=== PATIENT | male | born 1960 | race Caucasian/White ===

== ENCOUNTER 2021-04-29 15:56 | Inpatient (IN) | payer OTHER ==
[~2021-04-29] VITALS: Ht 188 cm; Wt 73.8 kg
[2021-04-29] MEDS ORDERED: SODIUM CHLORIDE 0.9% 1,000 ML IV ONE (21:45)
[2021-04-29] MEDS ORDERED: ONDANSETRON ODT 4 MG TAB PO ONE (21:45)
[2021-04-29 23:13] LABS: Basophils # (auto) 0.1 10 ^3/uL (0-0.2); Basophils % (auto) 0.7 % (0.0-2.0); Eosinophils # (auto) 0 10 ^3/uL (0-0.8); Eosinophils % (auto) 0.1 % (0.0-7.0); Hematocrit 35.1 % (41.0-53.0); Hemoglobin 11.8 g/dL (13.5-17.5); Lymphocytes # (auto) 2.1 10 ^3/uL (0.4-5.4); Lymphocytes % (auto) 21.5 % (10.0-50.0); Mean Corpuscular Hgb Conc. 33.6 g/dL (32.0-36.0); Mean Corpuscular Volume 86.2 fL (80.0-100.0); Monocytes # (auto) 0.9 10 ^3/uL (0-1.3); Monocytes % (auto) 9.1 % (0.0-12.0); Neutrophils # (auto) 6.7 10 ^3/uL (1.6-8.6); Neutrophils % (auto) 68.6 % (37.0-80.0); Nucleated Red Blood Cells % 0.1 %; Red Blood Cells 4.07 10^6/uL (4.5-5.90); Red Cell Distribution Width 17.5 % (11.8-14.3); White Blood Cell 9.8 10^3/uL (4.4-10.8)
[2021-04-29 23:33] LABS: Albumin 2.3 g/dL (3.4-5.0); Magnesium 1.3 mg/dL (1.6-2.6); Potassium 4.8 mmol/L (3.5-5.1)
[2021-04-29 23:37] LABS: BUN/Creatinine Ratio 17.6; Bilirubin, Total 1.9 mg/dL (0.2-1.0); Total Protein 8.6 g/dL (6.4-8.2)
[2021-04-30] MEDS ORDERED: ONDANSETRON HCL 4 MG/2 ML VIAL IV PRN (01:00)
[2021-04-30] MEDS ORDERED: NITROGLYCERIN 0.4 MG SL TAB SL PRN (01:00)
[2021-04-30] MEDS ORDERED: HYDROcodone-ACET 5/325MG TAB PO PRN (01:00)
[2021-04-30] MEDS ORDERED: ACETAMINOPHEN 325 MG TAB PO PRN (01:00)
[2021-04-30] MEDS ORDERED: MORPHINE SULFATE INJECTION 2 MG/ML SYRG IV PRN ×2 (01:00→06:15)
[2021-04-30] MEDS ORDERED: PAMIDRONATE DISODIUM 60 MG in SOD CHL 0.45% 1,000 ML IV ONE ×2 (01:00→08:45)
[2021-04-30] MEDS: PANTOPRAZOLE 40 MG TAB PO SCH (10:43)
[2021-04-30 13:00] VITALS: BP 112/68
[2021-04-30] MEDS ORDERED: GADOTERATE MEG 7.5 MMOL/15ml INJ (0.5MMOL/ml) IV ONE (14:06)
[2021-04-30] MEDS ORDERED: MAGNESIUM SULFATE 1GM/100ML 100 ML IV ONE (14:45)
[2021-04-30] MEDS: SODIUM CHLORIDE 0.9% 1,000 ML IV SCH ×2 (16:51→23:45)
[2021-04-30 17:00] VITALS: BP 121/70
[2021-04-30 22:00] VITALS: BP 125/71
[2021-05-01 05:00] VITALS: BP 120/75
[2021-05-01 06:22] LABS: Basophils # (auto) 0.1 10 ^3/uL (0-0.2); Basophils % (auto) 1.5 % (0.0-2.0); Eosinophils # (auto) 0 10 ^3/uL (0-0.8); Eosinophils % (auto) 0.3 % (0.0-7.0); Hematocrit 35.1 % (41.0-53.0); Hemoglobin 11.9 g/dL (13.5-17.5); Lymphocytes # (auto) 2.1 10 ^3/uL (0.4-5.4); Lymphocytes % (auto) 23.4 % (10.0-50.0); Mean Corpuscular Hemoglobin 29.8 pg (28.0-32.0); Mean Corpuscular Hgb Conc. 33.8 g/dL (32.0-36.0); Monocytes # (auto) 0.6 10 ^3/uL (0-1.3); Neutrophils % (auto) 67.8 % (37.0-80.0); Red Blood Cells 3.99 10^6/uL (4.5-5.90); Red Cell Distribution Width 17.6 % (11.8-14.3); White Blood Cell 8.9 10^3/uL (4.4-10.8)
[2021-05-01 06:55] LABS: Albumin 2.2 g/dL (3.4-5.0); Calcium 12.3 mg/dL (8.5-10.1); Magnesium 1.8 mg/dL (1.6-2.6); Potassium 4.9 mmol/L (3.5-5.1)
[2021-05-01 06:59] LABS: BUN/Creatinine Ratio 20.6; Total Protein 8.5 g/dL (6.4-8.2)
[2021-05-01 09:00] VITALS: BP 114/67
[2021-05-01] MEDS: SODIUM CHLORIDE 0.9% 1,000 ML IV SCH (09:39)
[2021-05-01] MEDS: PANTOPRAZOLE 40 MG TAB PO SCH (10:10)
[2021-05-01] MEDS ORDERED: DEX4T PO (15:28)
[2021-05-01] MEDS ORDERED: PANT40TA2 PO (15:28)
[2021-05-01 16:35] VITALS: BP 119/65
== END 2021-05-01 17:05 | disposition home or self-care (01) | DRG 640 ==
LOC: ER 15:56 → TELE 04-30 00:56 → TELE-CENTR 04-30 11:26
PROVIDERS: ADMIT Nurse Practitioner; ATTEND Internal Medicine
DX: E83.52 Hypercalcemia (principal); N17.0 Acute kidney failure with tubular necrosis; C79.51 Secondary malignant neoplasm of bone; C34.90 Malignant neoplasm of unspecified part of unspecified bronchus or lung; S32.058A Other fracture of fifth lumbar vertebra, initial encounter for closed fracture; E44.0 Moderate protein-calorie malnutrition; M54.16 Radiculopathy, lumbar region; Z20.822 Contact with and (suspected) exposure to COVID-19; R74.01 Elevation of levels of liver transaminase levels; E86.0 Dehydration; G89.29 Other chronic pain; N18.9 Chronic kidney disease, unspecified; Z85.05 Personal history of malignant neoplasm of liver; Z85.118 Personal history of other malignant neoplasm of bronchus and lung; Z87.891 Personal history of nicotine dependence; Z79.899 Other long term (current) drug therapy; X58.XXXA Exposure to other specified factors, initial encounter; Y93.89 Activity, other specified; Y92.89 Other specified places as the place of occurrence of the external cause; Y99.8 Other external cause status; Z68.20 Body mass index [BMI] 20.0-20.9, adult
CPT/HCPCS: 36415; 70553; 71045; 72131; 78306; 80053; 83735; 85025; 87426; 93005; 96361; 96365; 96366; 97163; G0378; J2405; Q0162